=== PATIENT | female | born 1950 | race Caucasian/White ===

== ENCOUNTER 2020-05-01 12:58 | Emergency (ER) | payer MEDICARE, SELFPAY ==
[2020-05-01 12:59] VITALS: BP 109/68; PULSE 85; RESP 16; TEMP 36.7; O2SAT 96; BMI 33.3
--- NOTE | 2020-05-01 13:23 | ED.VIS.GEN ---
History of Present Illness Chief Complaint: Lower Extremity Injury Informant: Patient Onset: Days Current Severity: Mild Maximum Severity: Mild Narrative: Pains of irritation to the right third toe for a week or more she is currently traveling back to [place] where she lives she was concerned she may have developed an infection involving the skin of that toe, no history of diabetes no trauma no lymphangitic streaking history of peripheral vascular disease Past Medical History Primary Care Physician: Care Physician,No Primary [Primary Care Provider] - Past Medical History: - - Includes as above Review of Systems ROS: - Includes as above denies diabetes General: Denies: Chills, Fever, Sweats Eyes: Denies: Visual changes - bilaterally, Diplopia ENT: Denies: Rhinorrhea, Sore throat Cardiovascular: Denies: Chest pain, Palpitations Respiratory: Denies: Dyspnea, Cough, Dyspnea on exertion Gastrointestinal: Denies: Abdominal pain, Nausea, Vomiting, Diarrhea, Melena, Hematochezia Genitourinary: Denies: Dysuria, Hematuria, Frequency Musculoskeletal: Reports: Extremity Pain. Denies: Back pain Skin: Denies: Rash, Wounds Neurological: Denies: Headache, Weakness, Numbness Physical Exam Vital Signs/Narrative: Vital Signs Temp Pulse Resp BP Pulse Ox 05/01/20 12:59 98.1 F 85 16 109/68 96 General: Well nourished, Well developed, No Acute Distress Head: Normocephalic, Atraumatic Eyes: Perrl, EOMI ENT: Moist mucous membranes, No rhinorrhea Neck: Supple, Nontender Cardiovascular: Regular rate, Regular rhythm, No murmurs Respiratory: No distress, CTA bilaterally, Chest nontender Abdomen: Soft, Nontender, Nondistended, Normal bowel sounds Back: Nontender, Normal Inspection Extremities: Nontender, No edema, - - Right third toe the DIP joints skin seems slightly indurated there is no lymphangitic streaking no signs of trauma pulses are symmetric skin is intact Skin: Normal color, No rash Neurological: Alert, Oriented x3, Cranial nerves II-XII grossly intact, Normal Strength, Normal Sensation Psychological: Normal affect, Normal Mood Diagnostic/Tx/Re-eval - Medical Decision Making I discussed all of the above with the patient she assures me there is been no trauma she does not wish to have an x-ray she does not wish to have any screening labs done she simply want to be started on antibiotics as she was traveling she might actually come back to [place] in about a month as she is planning on relocating she will be started on Augmentin given the information for podiatry and will follow-up with her physicians when she gets home and return for change in symptoms again she feels fine she is planning on traveling she wants to be discharged Home with stable Final impression inflammation or early infection involving right third toe ED Disposition - Plan for ED Patient: Diagnosis: Cellulitis Instructions: Cellulitis Prescriptions: Amox/Clavulanate Tablet [Augmentin Tablet] 875 mg PO Q12H #20 tab Prescription Printed Referrals: Care Physician,No Primary [Primary Care Provider] -
== END 2020-05-01 14:11 | disposition home or self-care (01) ==
PROVIDERS: Emergency Provider Emergency Medicine
DX: L03.031 Cellulitis of right toe (principal)
CPT/HCPCS: 99282

== ENCOUNTER → 2020-05-02 11:18 | Outpatient (CLI) | payer MEDICARE, SELFPAY ==
[2020-05-01 12:59] VITALS: BMI 33.3
[2020-05-02 15:28] LABS: Erythrocyte Sedimentation Rate 4 mm/hr (0-30)
[2020-05-02 15:30] LABS: Absolute Lymphocyte Count 3.02 X10^3/uL (0.83-4.51); Absolute Neutrophil Count 9.6 X10^3/uL (2.0-7.7); Basophil# 0.06 X10^3/uL; Basophil% 0.4 % (0-1); Eosinophil# 0.17 X10^3/uL; Eosinophils% 1.2 % (0-5); Hematocrit 45.9 % (37-47); Hemoglobin 14.6 g/dL (12.0-15.0); Lymphocyte # 3.02 X10^3/ul (4.0); Lymphocyte % 21.5 % (19-41); Mean Corp Hgb Conc 31.8 g/dL (32-36); Mean Corpuscular Hgb 31.1 pg (27.0-32.0); Mean Corpuscular Volume 97.7 fL (81-99); Mean Platelet Vol. 11.6 fl (6.2-12.0); Monocyte# 1.16 X10^3/uL; Monocyte% 8.3 % (0-10); NRBC Flagged by Analyzer 0 % (0-5); Neutrophil # 9.55 X10^3/uL (2.7-7.7); Neutrophil % 68.1 % (47-70); Platelet Count 434 K/mm3 (150-450); RBC Distribution Width CV 13.7 % (11.6-14.6); RBC Distribution Width SD 49.6 fl (35.1-43.9)
[2020-05-02 15:36] LABS: ALB/GLOB Ratio 1.1 RATIO (0.9-2.4); AST(SGOT) 9 U/L (15-37); Alanine Aminotransfer ALT/SGPT 28 U/L (13-56); Albumin, Serum 3.9 g/dL (3.2-5.0); Alkaline Phosphatase 84 U/L (45-117); Anion Gap 8 (5-15); BUN 27 mg/dL (7-18); BUN/Creat Ratio 20.9 RATIO (10-20); CRP 8.33 mg/L (0.0-3.0); Calcium,Total 8.9 mg/dL (8.5-10.1); Chloride 107 mmol/L (98-107); Creatinine, Serum 1.29 mg/dL (0.55-1.02); EST Glomerular Filtration Rate 44 mL/min (>60); Est Glom Filt Rate - Afr Amer 53 mL/min (>60); Globulin 3.4 g/dL (2.2-4.2); Glucose 115 mg/dL (74-106); Potassium 4.4 mmol/L (3.5-5.1); Protein, Total 7.3 g/dL (6.4-8.2); Sodium Level 139 mmol/L (136-145)
== END ==
LOC: MTLAB 11:22
PROVIDERS: Referring Provider Podiatrist; Visit Provider Podiatrist
DX: M10.9 Gout, unspecified (principal); M06.9 Rheumatoid arthritis, unspecified; L03.90 Cellulitis, unspecified
CPT/HCPCS: 36415; 80053; 84550; 85025; 85652; 86140